=== PATIENT | female | born 1990 | race Caucasian/White ===

== ENCOUNTER 2018-05-07 21:02 | Inpatient (IN) | payer OTHER ==
[2018-05-08] MEDS ORDERED: MINERAL OIL PO PRN (02:35)
[2018-05-08] MEDS ORDERED: PHENERGAN PO PRN (02:35)
[2018-05-08] MEDS ORDERED: ZOFRAN IV PRN (02:35)
[2018-05-08] MEDS ORDERED: BRETHINE SUB-Q PRN (02:35)
[2018-05-08] MEDS ORDERED: STADOL IV PRN (02:35)
[2018-05-08] MEDS ORDERED: SUBLIMAZE IV PRN (02:35)
[2018-05-08] MEDS ORDERED: BRETHINE IVP PRN (02:35)
[2018-05-08] MEDS ORDERED: XYLOCAINE 2% INFILTRATI ONE (02:35)
--- NOTE | 2018-05-08 02:42 | History and Physical Report ---
History of Present Illness Date of examination: 05/08/18 Chief complaint: Labor History of present illness: Pt is a 27yo HF EDC 05/09/18; EGA 39 6/7 weeks presents to L&D complaining of RUC's q 3-4 mins. She received care at [facility] since 9 weeks and has a history of previous . She desires another TOLAC. records are available and GBS is Negative. Past History Past Medical History: no pertinent history Past Surgical History: section Family/Genetic History: none Social history: no significant social history, single - Obstetrical History Expected Date of Delivery: 05/09/18 Actual Gestation: 39 Week(s) 6 Day(s) : 4 Medications and Allergies Allergies Allergy/AdvReac Type Severity Reaction Status Date / Time No Known Allergies Allergy Verified 06/25/15 00:35 Home Medications Medication Instructions Recorded Confirmed Last Taken Type No Known Home Medications [No 06/26/15 05/08/18 Unknown History Reported Home Medications] Active Meds: Active Medications Butorphanol Tartrate (Stadol) 2 mg IV Q2H PRN PRN Reason: Pain , Severe (7-10) Ephedrine Sulfate (Ephedrine Sulfate) 10 mg IV Q2M PRN PRN Reason: Hypotension Fentanyl (Sublimaze) 100 mcg IV Q2H PRN PRN Reason: Labor Pain Lactated Ringer's (Lactated Ringers) 1,000 mls @ 125 mls/hr IV DIRECT KISHA Oxytocin/Sodium Chloride (Pitocin/Ns 20 Unit/1000ml Drip) 20 units in 1,000 mls @ 125 mls/hr IV DIRECT KISHA Oxytocin/Sodium Chloride (Pitocin/Ns 30 Unit/500ml) 30 units in 500 mls @ 1 mls /hr IV TITR KISHA; Protocol Lidocaine (Xylocaine 2%) 20 ml INFILTRATI ONCE ONE Stop: 05/08/18 02:36 Mineral Oil (Mineral Oil) 30 ml PO QHS PRN PRN Reason: Constipation Ondansetron HCl (Zofran) 4 mg IV Q8H PRN PRN Reason: Nausea And Vomiting Review of Systems All systems: negative - Vital Signs Vital signs: Vital Signs Pulse BP 91 H 117/73 05/07/18 22:10 05/07/18 22:10 Temp Pulse Resp BP Pulse Ox 91 H 117/73 05/07/18 22:10 05/07/18 22:10 - Physical Exam Breasts: Positive: deferred Cardiovascular: Regular rate Lungs: Positive: Clear to auscultation Abdomen: Positive: normal appearance Genitourinary (Female): Positive: normal external genitalia Vagina: Positive: normal moisture Uterus: Positive: enlarged Extremities: Positive: normal - Obstetrical FHR: category 1 Uterine Contraction Monitor Mode: External Cervical Dilatation: 4.5 (per nurse) Cervical Effacement Percentage: 70 (per nurse) station: -3 Uterine Contraction Pattern: Regular Uterine Tone Measurement Phase: Contraction Uterine Contraction Intensity: Moderate Results Result Diagrams: 05/08/18 03:19 All other labs normal. Assessment and Plan - Patient Problems (1) 39 weeks gestation of Onset Date: 05/08/18 Current Visit: Yes Status: Acute Plan to address problem: A: IUP @ 39 6/7 weeks Previous P: Admit to L&D for expectant vaginal delivery
[2018-05-08] MEDS ORDERED: PITOCin/NS 30 UNIT/500ML 30 UNITS/500 ML BAG IV SCH ×2 (03:00)
[2018-05-08] MEDS ORDERED: PITOCin/NS 20 UNIT/1000ML DRIP 20 UNITS/1,000 ML BAG IV SCH (03:00)
[2018-05-08 03:44] LABS: Hematocrit 37.3 % (30.3-42.9); Mean Corpuscular HGB Conc 35 % (30-34); Mean Corpuscular Hemoglobin 32 pg (28-32); Mean Corpuscular Volume 92 fl (79-97); Platelet Count 198 K/mm3 (140-440); Red Blood Count 4.05 M/mm3 (3.65-5.03); Red Cell Distribution Width 13.4 % (13.2-15.2)
[2018-05-08] MEDS: LACTATED RINGERS 1,000 ML IV SCH ×3 (03:53→08:49)
[2018-05-08] MEDS ORDERED: NARCAN 2 MG/2 ML IV PRN (05:04)
[2018-05-08] MEDS ORDERED: fentaNYL-BUPIV 2 MCG/ML-0.125% 200 MCG/100 ML BAG EPIDURAL SCH (06:00)
--- NOTE | 2018-05-08 08:36 | Event Note ---
Date: 05/08/18 O: VE C/C/0, Unable to move baby with a trial push, epidural turned off, contractions every 2-3 min, CAT I tracing A: Active labor, P; Expect
--- NOTE | 2018-05-08 09:53 | Event Note ---
27yo 39+weeks, previous undergoing TOLAC. Cervix is complete, +2. Pitocin = 4 started overnight. [id number] [place] ctx Q1min Plan: Will start pushing now. Plan vaginal delivery.
[2018-05-08] MEDS ORDERED: TUCKS PAD TP PRN (10:36)
[2018-05-08] MEDS ORDERED: LANSINOH TP PRN (10:36)
[2018-05-08] MEDS ORDERED: MILK OF MAGNESIA PO PRN (10:36)
[2018-05-08] MEDS ORDERED: TYLENOL PO PRN (10:36)
[2018-05-08] MEDS ORDERED: PHENERGAN PR PRN (10:36)
[2018-05-08] MEDS ORDERED: DULCOLAX PR PRN (10:36)
[2018-05-08] MEDS ORDERED: BENADRYL PO PRN (10:36)
--- NOTE | 2018-05-08 10:36 | Procedure Note ---
OB Delivery Note - Vaginal Delivery presentation: vertex Delivery position: OA Intrapartum events: meconium Delivery induction: none Delivery augmentation: pitocin Delivery monitor: external FHT Route of delivery: Delivery placenta: spontaneous Episiotomy: none Delivery laceration: none Anesthesia: epidural Delivery comments: Term male delivered over intact perineum. Bulb suctioned and placed on maternal abdomen. Infant noted to be vigorous. Delivery at 1016. Placenta delivery 1021. Pitocin administered post-placenta delivery. Uterus noted to be firm and below umbilicus. Fundal massage noted no further uterine bleeding. EBL 150ml. - Infant A at 1 minute: 8 at 5 minutes: 9 Gender: Male (Weight 7lb 14oz)
[2018-05-08] MEDS ORDERED: SODIUM CHLORIDE FLUSH SYRINGE 10 ML IV NR (11:00)
[2018-05-08] MEDS ORDERED: MOTRIN PO ONE (12:06)
[2018-05-08] MEDS: NORCO 5/325 PO PRN ×2 (16:30→23:55)
[2018-05-08] MEDS: MOTRIN PO SCH (20:10)
[2018-05-08 22:44] LABS: Hematocrit 29.8 % (30.3-42.9); Hemoglobin 10.2 gm/dl (10.1-14.3)
[2018-05-09] MEDS: MOTRIN PO SCH ×3 (05:55→23:00)
[2018-05-09] MEDS ORDERED: BOOSTRIX IM ONE (06:00)
--- NOTE | 2018-05-09 14:47 | Progress Note ---
Assessment and Plan day 1 S/P . Anemia. P: Supplement with iron. Anticipate discharge tomorrow. Subjective - Subjective Date of service: 05/09/18 Principal diagnosis: day 1 Interval history: day 1 S/P . Patient is doing well. Patient is voiding without difficulty. She is tolerating a regular diet without nausea or vomiting. She is ambulating well. Patient denies headache, chest pain, cough, abdominal pain, heavy bleeding, or leg pain. Patient is . Patient reports: appetite normal, voiding normally, pain well controlled, flatus , ambulating normally : doing well Objective - Vital Signs Latest vital signs: Vital Signs Temp Pulse Resp BP BP Pulse Ox 05/09/18 09:54 97.9 F 84 16 97/52 05/09/18 00:25 98.6 F 87 18 102/76 98 05/08/18 17:30 98.6 F 85 20 103/62 97 Intake and Output 05/08/18 05/09/18 05/09/18 23:59 07:59 15:59 Intake Total 360 240 Balance 360 240 Intake: Oral 360 240 Other: Total, Intake Amount 240 240 # Voids Void 1 1 - Exam Cardiovascular: Present: Regular rate, Normal S1, Normal S2 Lungs: Present: Clear to auscultation Abdomen: Present: normal appearance, soft. Absent: distention, tenderness, rigidity Uterus: Present: normal, firm, fundal height below umbilicus. Absent: bogginess , tenderness Extremities: Present: normal. Absent: tenderness, edema - Labs Labs: Abnormal lab results 05/08/18 Range/Units 22:25 Hct 29.8 L D (30.3-42.9) %
[2018-05-09] MEDS ORDERED: FEOSOL PO SCH (15:00)
[2018-05-09] MEDS: NORCO 5/325 PO PRN (15:21)
[2018-05-10] MEDS: NORCO 5/325 PO PRN (04:55)
[2018-05-10] MEDS: MOTRIN PO SCH (05:46)
[2018-05-10 08:59] VITALS: BP 87/55
--- NOTE | 2018-05-10 10:23 | Progress Note ---
Assessment and Plan A: day 2. Anemia. P: Discharge patient home today. Discussed with patient discharge instructions and warning signs in detail. Advised pt. to avoid intercourse, avoid lifting and heavy housework, and avoid driving. The following Rx were called to [facility] pharmacy on [address]: Motrin 800 mg, #30, 1 po every 8 hours prn pain, 0 RF; Ferrous Sulfate 325 mg, #60, 1 po BID, 1 RF. Advised pt. to continue taking her vitamins. Advised pt. to follow up in office in 6 weeks. Pt. voiced understanding of all instructions. Subjective - Subjective Date of service: 05/10/18 Principal diagnosis: day 2 S/P vaginal delivery Interval history: day 1 S/P vaginal delivery. Patient is doing well. Patient desires discharge today. Patient reports a small amount of lochia. She is . She is ambulating well, voiding without difficulty, and tolerating a regular diet. Patient denies headache, cough, chest pain, shortness of breath, leg pain, abdominal pain, heavy bleeding, nausea or vomiting, or symptoms of depression. Patient is undecided regarding control. Patient reports: appetite normal, voiding normally, pain well controlled, flatus , ambulating normally : doing well Objective - Vital Signs Latest vital signs: Vital Signs Temp Pulse Resp BP BP Pulse Ox 05/10/18 08:18 97.8 F 81 18 87/55 05/10/18 06:46 18 05/10/18 05:55 18 05/10/18 05:46 18 05/10/18 04:55 18 05/10/18 01:50 98.4 F 89 18 107/59 96 05/09/18 23:00 18 05/09/18 16:45 98.7 F 20 05/09/18 15:32 100/54 05/09/18 13:30 98.6 F 78 18 102/60 Intake and Output 05/09/18 05/10/18 05/10/18 23:59 07:59 15:59 Intake Total 240 360 240 Balance 240 360 240 Intake: Oral 240 240 Intake, Free Water 240 120 Other: Total, Intake Amount 240 240 # Voids Void 1 1 1 - Exam Cardiovascular: Present: Regular rate, Normal S1, Normal S2 Lungs: Present: Clear to auscultation Abdomen: Present: normal appearance, soft. Absent: distention, tenderness, guarding, rigidity Uterus: Present: normal, firm, fundal height below umbilicus. Absent: bogginess , tenderness Extremities: Present: normal. Absent: tenderness, edema
--- NOTE | 2018-05-10 10:27 | Discharge Summary ---
Providers - Providers Date of Admission: 05/08/18 02:52 Date of discharge: 05/10/18 Attending physician: MIRIAM MCNAMARA MD Primary care physician: MIRIAM MCNAMARA MD Hospitalization Reason for admission: active labor Delivery: Episiotomy: none Laceration: other Other procedures: none complications: none Discharge diagnosis: IUP at term delivered, baby: male Pertinent studies: Labs Hospital course: Normal hospital course. Condition at discharge: Good Disposition: DC-01 TO HOME OR SELFCARE - Discharge Diagnoses (1) Term delivered Status: Acute Plan - Provider Discharge Summary Activity: routine, no sex for 6 weeks, no heavy lifting 4 weeks, no strenuous exercise Diet: routine Instructions: routine Additional instructions: Continue vitamin once per day and iron supplement twice per day. Call your doctor immediately for: * Fever > 100.5 * Heavy vaginal bleeding ( >1 pad per hour) * Severe persistent headache * Shortness of breath * Reddened, hot, painful area to leg or breast - Follow up plan Follow up: MIRIAM MCNAMARA MD [Primary Care Provider] - 6 Weeks Forms: [facility] Discharge Summary
== END 2018-05-10 11:30 | disposition home or self-care (01) | DRG 776 ==
LOC: TRG 21:02 → LD 05-08 02:52 → OB 05-08 12:29
PROVIDERS: ADMIT Obstetrics & Gynecology; ATTEND Obstetrics & Gynecology
DX: O90.81 Anemia of the puerperium (principal); D64.9 Anemia, unspecified
CPT/HCPCS: 36415; 85014; 85018; 85027; 86592; 86850; 86900; 86901; 90471; 90715; J0595; J2405; J2590; J7120

== ENCOUNTER 2021-03-13 01:39 | Inpatient (IN) | payer MEDICAID, OTHER ==
[2021-03-13] MEDS ORDERED: TERBUTALINE 1 MG/1 ML INJ SUB-Q PRN (02:16)
[2021-03-13] MEDS ORDERED: LIDOCAINE (2%) 20 MG/1 ML VIAL 20 ML MDV INFILTRATI ONE (02:16)
[2021-03-13] MEDS ORDERED: miSOPROStol 200 MCG TAB PR PRN (02:16)
[2021-03-13] MEDS ORDERED: ePHEDrine SULFATE 50 MG/1 ML INJ IV PRN ×2 (02:16→03:48)
[2021-03-13] MEDS ORDERED: fentaNYL 100 MCG/2 ML INJ IV PRN (02:16)
[2021-03-13] MEDS ORDERED: METHYLERGONOVINE MALEATE 0.2 MG/ML VIAL IM PRN (02:16)
[2021-03-13] MEDS ORDERED: ONDANSETRON 4 MG/2 ML INJ IV PRN ×3 (02:16→17:00)
[2021-03-13] MEDS ORDERED: NALOXONE 0.4 MG/1 ML INJ IV PRN (02:16)
[2021-03-13] MEDS ORDERED: CARBOPROST TROMETHAMINE 250 MCG/1 ML INJ IM PRN (02:16)
[2021-03-13] MEDS ORDERED: OXYTOCIN 10 UNIT/1 ML INJ IM PRN (02:16)
[2021-03-13] MEDS ORDERED: LOPERAMIDE 2 MG CAP PO PRN (02:16)
[2021-03-13] MEDS ORDERED: BUTORPHANOL 2 MG/1 ML INJ IV PRN (02:16)
[2021-03-13] MEDS ORDERED: MINERAL OIL 30 ML ORAL LIQD PO PRN (02:16)
[2021-03-13] MEDS ORDERED: OXYTOCIN DRIP 30 UNITS/500 ML BAG IV SCH ×2 (03:00→09:00)
[2021-03-13] MEDS: LACTATED RINGERS 1,000 ML IV SCH ×2 (03:17→10:16)
[2021-03-13 03:19] LABS: Hematocrit 35.3 % (30.3-42.9); Hemoglobin 12.1 gm/dl (10.1-14.3); Mean Corpuscular HGB Conc 34 % (30-34); Mean Corpuscular Volume 88 fl (79-97); Platelet Count 247 K/mm3 (140-440); Red Blood Count 4.03 M/mm3 (3.65-5.03); Red Cell Distribution Width 14.8 % (13.2-15.2)
--- NOTE | 2021-03-13 03:23 | History and Physical Report ---
History of Present Illness Date of examination: 03/13/21 Date of admission: 03/13/21 02:16 Chief complaint: contractions History of present illness: 30yo at 41.1 weeks, TOLAC 4cm/70/-3, previous c/sectionx1 with two successful deliveries PNC at [facility], records in chart Past History Past Surgical History: no surgical history Family/Genetic History: none - Obstetrical History Expected Date of Delivery: 03/12/21 Actual Gestation: 40 Week(s) 1 Day(s) : 6 Medications and Allergies Allergies Allergy/AdvReac Type Severity Reaction Status Date / Time No Known Allergies Allergy Verified 06/25/15 00:35 Home Medications Medication Instructions Recorded Confirmed Last Taken Type No Known Home Medications [No 06/26/15 05/08/18 Unknown History Reported Home Medications] Active Meds: Active Medications Butorphanol Tartrate (Butorphanol 2 Mg/1 Ml Inj) 2 mg IV Q2H PRN PRN Reason: Pain , Severe (7-10) Carboprost Tromethamine (Carboprost Tromethamine 250 Mcg/1 Ml Inj) 250 mcg IM ONCE PRN PRN Reason: Uterine Bleeding Ephedrine Sulfate (Ephedrine Sulfate 50 Mg/1 Ml Inj) 10 mg IV Q2M PRN PRN Reason: Hypotension Fentanyl (Fentanyl 100 Mcg/2 Ml Inj) 100 mcg IV Q2H PRN PRN Reason: Pain,Severe (7-10) LABOR PAIN Lactated Ringer's (Lactated Ringers) 1,000 mls @ 125 mls/hr IV DIRECT KISHA Last Admin: 03/13/21 03:17 Dose: 125 mls/hr Documented by: Oxytocin/Sodium Chloride (Pitocin/Ns 30 Unit/500ml) 30 units in 500 mls @ 40 mls/hr IV TITR KISHA; Protocol Loperamide HCl (Loperamide 2 Mg Cap) 2 mg PO ONCE PRN PRN Reason: give with Hemabate Methylergonovine Maleate (Methylergonovine Maleate 0.2 Mg/Ml Vial) 0.2 mg IM ONCE PRN PRN Reason: Uterine Bleeding Mineral Oil (Mineral Oil 30 Ml Oral Liqd) 30 ml PO QHS PRN PRN Reason: Constipation Misoprostol (Misoprostol 200 Mcg Tab) 800 mcg [place] ONCE PRN PRN Reason: Uterine Bleeding Naloxone HCl (Naloxone 0.4 Mg/1 Ml Inj) 0.1 mg IV Q2MIN PRN PRN Reason: Res Rate </= 8 or 02 SAT < 92% Ondansetron HCl (Ondansetron 4 Mg/2 Ml Inj) 4 mg IV Q8H PRN PRN Reason: Nausea And Vomiting Oxytocin (Oxytocin 10 Unit/1 Ml Inj) 10 unit IM ONCE PRN PRN Reason: Uterine Bleeding Terbutaline Sulfate (Terbutaline 1 Mg/1 Ml Inj) 0.25 mg SUB-Q ONCE PRN PRN Reason: Hyperstimulation/Hypertonicity Review of Systems All systems: negative (contractions) - Vital Signs Vital signs: Vital Signs Temp Resp 98.1 F 18 03/13/21 01:46 03/13/21 01:46 Temp Pulse Resp BP Pulse Ox 98.1 F 103 H 18 98 03/13/21 01:46 03/13/21 03:09 03/13/21 01:46 03/13/21 03:09 - Physical Exam Breasts: Positive: deferred Cardiovascular: Regular rate Lungs: Positive: Clear to auscultation Abdomen: Positive: normal appearance, soft, normal bowel sounds Genitourinary (Female): Positive: normal external genitalia, normal perenium Vagina: Positive: normal moisture Anus/Rectum: Positive: normal perianal skin Extremities: Positive: normal Deep Tendon Reflex Grade: Normal +2 - Obstetrical FHR: category 1 Uterine Contraction Monitor Mode: External Cervical Dilatation: 4 Cervical Effacement Percentage: 70 station: -3 Uterine Contraction Frequency (min): 4 Uterine Contraction Pattern: Regular Uterine Contraction Intensity: Moderate Results Result Diagrams: 03/13/21 02:54 All other labs normal. Assessment and Plan TOLAC plan: admission epidural informed TOLAC consent GBS prophylaxis prn CFM Maternal/ well-being reassuring Torri Gonzalez MD
[2021-03-13] MEDS ORDERED: diphenhydrAMINE 50 MG/ML VIAL IV PRN (03:48)
[2021-03-13] MEDS ORDERED: NALOXONE 2 MG/2 ML INJ IV PRN (03:48)
[2021-03-13] MEDS ORDERED: NalbUPHINE 10 MG/1 ML INJ IV PRN (03:48)
[2021-03-13] MEDS ORDERED: LACTATED RINGERS 250 ML IV SOLN IV ONE (03:48)
[2021-03-13] MEDS ORDERED: fentaNYL-BUPIV 2 MCG/ML-0.125% 200 MCG/100 ML BAG EPIDURAL SCH (04:00)
--- NOTE | 2021-03-13 04:24 | Anesthesia Consultation ---
Anesthesia Consult and Med Hx Date of service: 03/13/21 - Airway Anesthetic Teeth Evaluation: Good ROM Head & Neck: Adequate Mental/Hyoid Distance: Adequate Mallampati Class: Class II Intubation Access Assessment: Probably Good - Pulmonary Exam CTA: Yes - Cardiac Exam Cardiac Exam: RRR - Pre-Operative Health Status ASA Pre-Surgery Classification: ASA2 Proposed Anesthetic Plan: Epidural - Pulmonary Hx Smoking: No Hx Asthma: No COPD: No Hx Pneumonia: No Hx Sleep Apnea: No - Cardiovascular System Hx Hypertension: No Hx Coronary Artery Disease: No Hx Heart Attack/AMI: No Hx Angina: No - Central Nervous System Hx Seizures: No Hx Back Pain: Yes Hx Psychiatric Problems: No - Gastrointestinal Hx Gastroesophageal Reflux Disease: No - Endocrine Hx Renal Disease: No Hx End Stage Renal Disease: No Hx Liver Disease: No Hx Insulin Dependent Diabetes: No Hx Non-Insulin Dependent Diabetes: No Hx Hypothyroidism: No Hx Hyperthyroidism: No - Hematic Hx Anemia: No Hx Sickle Cell Disease: No - Other Systems Hx Alcohol Use: No
--- NOTE | 2021-03-13 04:25 | Progress Note ---
Labor Epidural - Labor Epidural Start Time: 04:07 Stop Time: 04:21 Performed by:: SILVIA EDMOND Procedure: Patient is requesting epidural for labor and pain. H&P, labs were reviewed. Patient IDed, H&P reviewed, all questions and concerns were answered, and consent was signed. Timeout was performed at bedside. Patient in sitting position. Sterile prep and drape was performed. 3ml of 1% lidocaine skin wheal at L[3]- L [4]. 18-gauge [employer] epidural needle was advanced to loss of resistance with air technique 5cm. Negative CSF negative blood. Epidural catheter advanced to [10] centimeters. [negative] Aspiration [negative] test dose. Sterile dressing applied. Patient tolerated procedure.
[2021-03-13] MEDS ORDERED: BUPIVACAINE/PF (0.25%) 2.5 MG/ML 10 ML VIAL INFILTRATI ONE (12:21)
--- NOTE | 2021-03-13 12:45 | Event Note ---
Date: 03/13/21 Notified by nurse that pt's HR was 130s with a temp of 99.6. FHt was CAT I. Nurse was advised to give pt a 500cc fluid bolus and get an EKG. Dr Tristan was consulted.
--- NOTE | 2021-03-13 12:56 | Progress Note ---
Assessment and Plan A: IUP@ 40.2 wks Previous c/s with X2 Mec Maternal tach P: Continue monitoring with Pitocin AROM (light mec) Notify NICU IFM/IUPC placed EKG- maternal tach otherwise wnl Anticipate Dr Tristan was consulted Subjective - Subjective Date of service: 03/13/21 Principal diagnosis: iup @ 40.2 wks Patient reports: loss of fluid, movement normal, contractions Objective - Vital Signs Vital Signs: Vital Signs - 12hr 03/13/21 03/13/21 03/13/21 01:46 02:27 02:32 Temperature 98.1 F Pulse Rate 108 H 112 H Respiratory 18 Rate Blood Pressure O2 Sat by Pulse 97 98 Oximetry 03/13/21 03/13/21 03/13/21 02:54 02:59 03:04 Temperature Pulse Rate 100 H 104 H 107 H Respiratory Rate Blood Pressure O2 Sat by Pulse 98 98 97 Oximetry 03/13/21 03/13/21 03/13/21 03:09 03:41 03:50 Temperature Pulse Rate 103 H 112 H 114 H Respiratory Rate Blood Pressure O2 Sat by Pulse 98 96 99 Oximetry 03/13/21 03/13/21 03/13/21 03:55 04:00 04:05 Temperature Pulse Rate 116 H 106 H 116 H Respiratory Rate Blood Pressure O2 Sat by Pulse 98 99 99 Oximetry 03/13/21 03/13/21 03/13/21 04:10 04:15 04:20 Temperature Pulse Rate 119 H 109 H 111 H Respiratory Rate Blood Pressure O2 Sat by Pulse 99 98 97 Oximetry 03/13/21 03/13/21 03/13/21 04:23 04:25 04:27 Temperature Pulse Rate 114 H 113 H 109 H Respiratory Rate Blood Pressure 126/80 114/70 108/65 O2 Sat by Pulse Oximetry 03/13/21 03/13/21 03/13/21 04:29 04:31 04:34 Temperature Pulse Rate 95 H 90 104 H Respiratory Rate Blood Pressure 109/64 100/57 O2 Sat by Pulse 91 100 Oximetry 03/13/21 03/13/21 03/13/21 04:37 04:39 04:40 Temperature Pulse Rate 96 H 90 99 H Respiratory Rate Blood Pressure 105/57 95/53 O2 Sat by Pulse 100 Oximetry 03/13/21 03/13/21 03/13/21 04:43 04:44 04:46 Temperature Pulse Rate 106 H 85 101 H Respiratory Rate Blood Pressure 118/63 130/69 O2 Sat by Pulse 98 Oximetry 03/13/21 03/13/21 03/13/21 04:49 04:54 04:59 Temperature Pulse Rate 96 H 98 H 124 H Respiratory Rate Blood Pressure O2 Sat by Pulse 97 98 99 Oximetry 03/13/21 03/13/21 03/13/21 05:01 05:04 05:09 Temperature Pulse Rate 100 H 127 H 120 H Respiratory Rate Blood Pressure 122/69 O2 Sat by Pulse 98 98 Oximetry 03/13/21 03/13/21 03/13/21 05:14 05:19 05:24 Temperature Pulse Rate 90 102 H 129 H Respiratory Rate Blood Pressure O2 Sat by Pulse 97 97 100 Oximetry 03/13/21 03/13/21 03/13/21 05:29 05:32 05:34 Temperature Pulse Rate 109 H 126 H 110 H Respiratory Rate Blood Pressure 89/50 O2 Sat by Pulse 99 99 Oximetry 03/13/21 03/13/21 03/13/21 05:39 05:44 05:49 Temperature Pulse Rate 109 H 100 H 106 H Respiratory Rate Blood Pressure O2 Sat by Pulse 100 100 100 Oximetry 03/13/21 03/13/21 03/13/21 05:54 05:58 05:59 Temperature Pulse Rate 107 H 131 H 97 H Respiratory Rate Blood Pressure 118/67 O2 Sat by Pulse 100 100 Oximetry 03/13/21 03/13/21 03/13/21 06:03 06:04 06:09 Temperature Pulse Rate 130 H 106 H 125 H Respiratory Rate Blood Pressure 130/76 O2 Sat by Pulse 100 100 Oximetry 03/13/21 03/13/21 03/13/21 06:14 06:19 06:24 Temperature Pulse Rate 102 H 111 H 129 H Respiratory Rate Blood Pressure O2 Sat by Pulse 100 100 100 Oximetry 03/13/21 03/13/21 03/13/21 06:29 06:32 06:34 Temperature Pulse Rate 129 H 129 H 122 H Respiratory Rate Blood Pressure 106/66 O2 Sat by Pulse 100 100 Oximetry 03/13/21 03/13/21 03/13/21 06:39 06:44 06:49 Temperature Pulse Rate 121 H 105 H 118 H Respiratory Rate Blood Pressure O2 Sat by Pulse 100 100 98 Oximetry 03/13/21 03/13/21 03/13/21 06:54 06:55 06:59 Temperature 99.5 F Pulse Rate 110 H 121 H Respiratory Rate Blood Pressure O2 Sat by Pulse 100 98 Oximetry 03/13/21 03/13/21 03/13/21 07:02 07:04 07:09 Temperature Pulse Rate 120 H 117 H 117 H Respiratory Rate Blood Pressure 111/58 O2 Sat by Pulse 99 98 Oximetry 03/13/21 03/13/21 03/13/21 07:14 07:19 07:24 Temperature Pulse Rate 107 H 111 H 120 H Respiratory Rate Blood Pressure O2 Sat by Pulse 98 98 99 Oximetry 03/13/21 03/13/21 03/13/21 07:29 07:32 07:34 Temperature Pulse Rate 117 H 118 H 126 H Respiratory Rate Blood Pressure 105/55 O2 Sat by Pulse 98 97 Oximetry 03/13/21 03/13/21 03/13/21 07:39 07:44 07:49 Temperature Pulse Rate 117 H 129 H 112 H Respiratory Rate Blood Pressure O2 Sat by Pulse 98 99 97 Oximetry 03/13/21 03/13/21 03/13/21 07:54 07:59 08:03 Temperature Pulse Rate 110 H 129 H 123 H Respiratory Rate Blood Pressure 111/66 O2 Sat by Pulse 97 99 Oximetry 03/13/21 03/13/21 03/13/21 08:04 08:09 08:14 Temperature Pulse Rate 130 H 117 H 120 H Respiratory Rate Blood Pressure O2 Sat by Pulse 98 99 99 Oximetry 03/13/21 03/13/21 03/13/21 08:19 08:24 08:29 Temperature Pulse Rate 116 H 129 H 128 H Respiratory Rate Blood Pressure O2 Sat by Pulse 98 99 100 Oximetry 03/13/21 03/13/21 03/13/21 08:32 08:34 08:39 Temperature Pulse Rate 127 H 131 H 119 H Respiratory Rate Blood Pressure 105/63 O2 Sat by Pulse 100 100 Oximetry 03/13/21 03/13/21 03/13/21 08:44 08:49 08:54 Temperature Pulse Rate 113 H 127 H 124 H Respiratory Rate Blood Pressure O2 Sat by Pulse 100 100 100 Oximetry 03/13/21 03/13/21 03/13/21 08:59 09:02 09:04 Temperature Pulse Rate 130 H 126 H 127 H Respiratory Rate Blood Pressure 101/57 O2 Sat by Pulse 100 100 Oximetry 03/13/21 03/13/21 03/13/21 09:09 09:14 09:19 Temperature Pulse Rate 130 H 127 H 133 H Respiratory Rate Blood Pressure O2 Sat by Pulse 100 100 100 Oximetry 03/13/21 03/13/21 03/13/21 09:24 09:29 09:32 Temperature Pulse Rate 125 H 126 H 125 H Respiratory Rate Blood Pressure 98/56 O2 Sat by Pulse 100 100 Oximetry 03/13/21 03/13/21 03/13/21 09:34 09:39 09:44 Temperature Pulse Rate 121 H 129 H 127 H Respiratory Rate Blood Pressure O2 Sat by Pulse 100 99 100 Oximetry 03/13/21 03/13/21 03/13/21 09:49 09:54 09:59 Temperature Pulse Rate 132 H 125 H 126 H Respiratory Rate Blood Pressure O2 Sat by Pulse 100 99 100 Oximetry 03/13/21 03/13/21 03/13/21 10:00 10:04 10:09 Temperature 99.6 F Pulse Rate 117 H 123 H Respiratory Rate Blood Pressure 116/64 O2 Sat by Pulse 98 96 Oximetry 03/13/21 03/13/21 03/13/21 10:14 10:19 10:24 Temperature Pulse Rate 115 H 124 H 108 H Respiratory Rate Blood Pressure O2 Sat by Pulse 98 100 100 Oximetry 03/13/21 03/13/21 03/13/21 10:29 10:32 10:34 Temperature Pulse Rate 108 H 106 H 105 H Respiratory Rate Blood Pressure 109/59 O2 Sat by Pulse 97 98 Oximetry 03/13/21 03/13/21 03/13/21 10:39 10:44 10:49 Temperature Pulse Rate 108 H 107 H 106 H Respiratory Rate Blood Pressure O2 Sat by Pulse 97 97 98 Oximetry 03/13/21 03/13/21 03/13/21 10:54 10:59 11:02 Temperature Pulse Rate 114 H 113 H 113 H Respiratory Rate Blood Pressure 106/57 O2 Sat by Pulse 97 95 Oximetry 03/13/21 03/13/21 03/13/21 11:04 11:09 11:14 Temperature Pulse Rate 111 H 115 H 129 H Respiratory Rate Blood Pressure O2 Sat by Pulse 99 98 100 Oximetry 03/13/21 03/13/21 03/13/21 11:19 11:24 11:29 Temperature Pulse Rate 120 H 122 H 120 H Respiratory Rate Blood Pressure O2 Sat by Pulse 100 100 100 Oximetry 03/13/21 03/13/21 03/13/21 11:33 11:34 11:39 Temperature Pulse Rate 115 H 120 H 120 H Respiratory Rate Blood Pressure 106/61 O2 Sat by Pulse 100 100 Oximetry 03/13/21 03/13/21 03/13/21 11:44 11:49 11:54 Temperature Pulse Rate 116 H 120 H 127 H Respiratory Rate Blood Pressure O2 Sat by Pulse 99 100 100 Oximetry 03/13/21 03/13/21 03/13/21 11:59 12:04 12:10 Temperature Pulse Rate 120 H 127 H 121 H Respiratory Rate Blood Pressure O2 Sat by Pulse 99 96 96 Oximetry 03/13/21 03/13/21 03/13/21 12:15 12:20 12:25 Temperature Pulse Rate 118 H 121 H 120 H Respiratory Rate Blood Pressure O2 Sat by Pulse 97 97 96 Oximetry 03/13/21 03/13/21 03/13/21 12:30 12:35 12:40 Temperature Pulse Rate 104 H 99 H 103 H Respiratory Rate Blood Pressure O2 Sat by Pulse 97 96 97 Oximetry 03/13/21 12:45 Temperature Pulse Rate 104 H Respiratory Rate Blood Pressure O2 Sat by Pulse 97 Oximetry - Exam Breasts: deferred Abdomen: Present: normal appearance, soft, normal bowel sounds Vulva: both: normal FHR: auscultation normal, category 1 Uterine Contraction Monitor Mode: Internal Cervical Dilatation: 7 Cervical Effacement Percentage: 100 station: -1 Uterine Contraction Pattern: Regular Uterine Tone Measurement Phase: Resting Uterine Contraction Intensity: Strong/Firm Extremities: normal - Labs Labs: Laboratory Results - last 24 hr 03/13/21 03/13/21 03/13/21 02:54 02:54 06:20 WBC 11.0 RBC 4.03 Hgb 12.1 Hct 35.3 MCV 88 MCH 30 MCHC 34 RDW 14.8 Plt Count 247 Syphilis IgG Antibody Nonreactive Blood Type A POSITIVE Antibody Screen Negative
[2021-03-13] MEDS ORDERED: AMPICILLIN/NS 2 GM/100 ML 2 GM/100 ML BAG IV ONE (15:54)
[2021-03-13] MEDS ORDERED: WITCH HAZEL/ GLYCERIN PAD TP PRN (16:19)
--- NOTE | 2021-03-13 16:44 | Procedure Note ---
OB Delivery Note - Delivery Date of Delivery: 03/13/21 Surgeon: MARILYN HARDIN Estimated blood loss: <100cc - Vaginal Delivery presentation: vertex Delivery position: OA Intrapartum events: other(please specify) (, temp 100.1, maternal tach) Delivery induction: oxytocin Delivery augmentation: rupture of membranes Delivery monitor: external FHT, external uterine, internal uterine Route of delivery: Delivery placenta: spontaneous Delivery cord: 3 umbilical vessels Episiotomy: none Delivery laceration: none Anesthesia: epidural Delivery comments: Called to delivery SVE 10/100%/0 and pt was pushing. of a live viable female infant in OA position. Spontaneous delivery of head and shoulders. Baby to mom's abd/chest for skin to skin bonding. Delayed cord clamping while NICU nurse dried and stimulated baby. Cord was clamped x 2 and FOB was guided in cutting the cord. Afterwards, was taken by NICU nurse for an asses 9/9. Spontaneous delivery of an intact placenta with 3CV. FF@ 2U with fundal massage and IV Pitocin. An exploration of tears revealed none. FW 3300 Gms. EBL <100cc. Mom and baby was left in stable cond with nurses. - A at 1 minute: 9 at 5 minutes: 9 Infant Gender: Female
[2021-03-13] MEDS ORDERED: ACETAMINOPHEN 325 MG TAB PO PRN (17:00)
[2021-03-13] MEDS ORDERED: PROMETHAZINE 25 MG TAB PO PRN (17:00)
[2021-03-13] MEDS ORDERED: MAGNESIUM HYDROXIDE (MOM) ORAL LIQD UDC PO PRN (17:00)
[2021-03-13] MEDS ORDERED: LANOLIN/ZINC/DIMETHICONE (LANSINOH) 7 GM TP PRN (17:00)
[2021-03-13] MEDS ORDERED: diphenhydrAMINE 25 MG CAP PO PRN (17:00)
[2021-03-13] MEDS ORDERED: PROMETHAZINE 25 MG RECT SUPP PR PRN (17:00)
--- NOTE | 2021-03-13 19:52 | Cat Scan Report ---
CTA CHEST WITH CONTRAST INDICATION / CLINICAL INFORMATION: tachycardia. TECHNIQUE: Axial CT images were obtained through the chest after injection of IV contrast. 3 plane SC P and/or 3D reconstructions were produced. All CT scans at this location are performed using CT dose reduction for ALARA by means of automated exposure control. COMPARISON: None available. FINDINGS: The pulmonary arteries are patent without filling defect or evidence for PTE. No focal consolidation, pleural effusion or pneumothorax. No well-defined nodular mass is seen. Heart and aorta appear gely l. Visualized portions of the upper abdomen appear normal. IMPRESSION: 1. No CT evidence for pulmonary embolism. 2. No acute findings. Signer Name: Alton Youngblood MD Signed: 03/13/2021 7:48 PM Workstation Name: [id number]
--- NOTE | 2021-03-13 20:26 | Consultation ---
History of Present Illness - Reason for Consult Consult date: 03/13/21 tachycardia Requesting physician: PURNIMA REYES - History of Present Illness 30 YO Female with Obesity. Consult placed for tachycardia. Patient seen and evaluated in her room. Patient without fever, chills, chest pain, palpitation, productive cough, skin rash, recent ill contact, or known exposure to COVID-19. No reported nursing events. Past History Past Medical History: other (see HPI) Past Surgical History: No surgical history, Other (reviewed) Social history: . denies: smoking, alcohol abuse, prescription drug abuse Family history: no significant family history, other (reviewed) Medications and Allergies Allergies Allergy/AdvReac Type Severity Reaction Status Date / Time No Known Allergies Allergy Verified 06/25/15 00:35 Home Medications Medication Instructions Recorded Confirmed Last Taken Type Ibuprofen [Motrin 600 MG tab] 600 mg PO Q6H #30 tablet 03/15/21 Unknown Rx Vit-Fe Fumar-FA [ 1 each PO QDAY tablet 03/15/21 Unknown Rx Vitamin] Active Meds: Active Medications Acetaminophen (Acetaminophen 325 Mg Tab) 650 mg PO Q4H PRN PRN Reason: Pain MILD(1-3)/Fever >100.5/CROW Bisacodyl (Bisacodyl 10 Mg Rect Supp) 10 mg VT BID PRN PRN Reason: Constipation Butorphanol Tartrate (Butorphanol 2 Mg/1 Ml Inj) 2 mg IV Q2H PRN PRN Reason: Pain , Severe (7-10) Carboprost Tromethamine (Carboprost Tromethamine 250 Mcg/1 Ml Inj) 250 mcg IM ONCE PRN PRN Reason: Uterine Bleeding Diphenhydramine HCl (Diphenhydramine 50 Mg/Ml Vial) 12.5 mg IV Q2H PRN PRN Reason: Itching Diphenhydramine HCl (Diphenhydramine 25 Mg Cap) 25 mg PO Q6H PRN PRN Reason: Itching Ephedrine Sulfate (Ephedrine Sulfate 50 Mg/1 Ml Inj) 10 mg IV Q2M PRN PRN Reason: Hypotension Last Admin: 03/13/21 04:42 Dose: 10 mg Documented by: Fentanyl (Fentanyl 100 Mcg/2 Ml Inj) 100 mcg IV Q2H PRN PRN Reason: Pain,Severe (7-10) LABOR PAIN Lactated Ringer's (Lactated Ringers) 1,000 mls @ 125 mls/hr IV DIRECT KISHA Last Admin: 03/13/21 10:16 Dose: 125 mls/hr Documented by: Oxytocin/Sodium Chloride (Pitocin/Ns 30 Unit/500ml) 30 units in 500 mls @ 40 mls/hr IV TITR KISHA; Protocol Fentanyl/Bupivacaine/Sodium Chlor (Fentanyl-Bupiv 2 Mcg/Ml-0.125%) 200 mcg in 100 mls @ 12 mls/hr EPIDURAL TITR KISHA; Protocol Last Admin: 03/13/21 04:33 Dose: 12 mls/hr Documented by: Oxytocin/Sodium Chloride (Pitocin/Ns 30 Unit/500ml) 30 units in 500 mls @ 1 mls/hr IV TITR KISHA; Protocol Ibuprofen (Ibuprofen 600 Mg Tab) 600 mg PO Q6H KISHA Loperamide HCl (Loperamide 2 Mg Cap) 2 mg PO ONCE PRN PRN Reason: give with Hemabate Magnesium Hydroxide (Magnesium Hydroxide (Mom) Oral Liqd Udc) 30 ml PO HS PRN PRN Reason: Constipation Methylergonovine Maleate (Methylergonovine Maleate 0.2 Mg/Ml Vial) 0.2 mg IM ONCE PRN PRN Reason: Uterine Bleeding Mineral Oil (Mineral Oil 30 Ml Oral Liqd) 30 ml PO QHS PRN PRN Reason: Constipation Misoprostol (Misoprostol 200 Mcg Tab) 800 mcg VT ONCE PRN PRN Reason: Uterine Bleeding Multi-Ingredient Ointment (Lanolin/Zinc/Dimethicone (Lansinoh) 7 Gm) 1 applic TP PRN PRN PRN Reason: Sore Nipples Multivitamins/Iron/Calcium ( [id number]-[id number] Fumarate-Folic Acid Vit Tab) 1 each PO QDAY KISHA Nalbuphine HCl (Nalbuphine 10 Mg/1 Ml Inj) 2.5 mg IV Q2H PRN PRN Reason: Itching Naloxone HCl (Naloxone 0.4 Mg/1 Ml Inj) 0.1 mg IV Q2MIN PRN PRN Reason: Res Rate </= 8 or 02 SAT < 92% Naloxone HCl (Naloxone 2 Mg/2 Ml Inj) 0.2 mg IV Q5M PRN PRN Reason: Respiratory sedation Ondansetron HCl (Ondansetron 4 Mg/2 Ml Inj) 4 mg IV Q8H PRN PRN Reason: Nausea And Vomiting Last Admin: 03/13/21 06:44 Dose: 4 mg Documented by: Ondansetron HCl (Ondansetron 4 Mg/2 Ml Inj) 4 mg IV Q8H PRN PRN Reason: Nausea And Vomiting Oxycodone/Acetaminophen (Oxycodone /Acetaminophen 5-325mg Tab) 1 tab PO Q6H PRN PRN Reason: Pain, Moderate (4-6) Oxytocin (Oxytocin 10 Unit/1 Ml Inj) 10 unit IM ONCE PRN PRN Reason: Uterine Bleeding Promethazine HCl (Promethazine 25 Mg Rect Supp) 25 mg VT Q6H PRN PRN Reason: Nausea And Vomiting Promethazine HCl (Promethazine 25 Mg Tab) 25 mg PO Q6H PRN PRN Reason: Nausea And Vomiting Sodium Chloride (Sodium Chloride 0.9% 10 Ml Flush Syringe) 10 ml IV PRN NR Stop: 03/14/21 23:59 Terbutaline Sulfate (Terbutaline 1 Mg/1 Ml Inj) 0.25 mg SUB-Q ONCE PRN PRN Reason: Hyperstimulation/Hypertonicity Witch Galina/Glycerin (Witch Galina/ Glycerin Pad) 1 each TP PRN PRN PRN Reason: Hemorrhoid/cleansing/soothing Review of Systems Constitutional: no weight loss, no weight gain, no fever, no chills Ears, nose, mouth and throat: no ear pain, no ear discharge, no decreased hearing, no nose pain, no nasal congestion Cardiovascular: no chest pain, no orthopnea, no palpitations, no rapid/irregular heart beat Respiratory: no cough, no cough with sputum, no hemoptysis, no shortness of breath Gastrointestinal: no abdominal pain, no nausea, no vomiting, no diarrhea Genitourinary Female: no pelvic pain, no flank pain, no dysuria, no urinary frequency, no urgency Rectal: no pain, no incontinence, no bleeding Musculoskeletal: no neck stiffness, no neck pain, no arm numbness/tingling, no low back pain, no leg numbness/tingling Integumentary: no rash, no pruritis, no redness, no sores, no wounds, no jaundice Neurological: no transient paralysis, no paralysis, no weakness, no tingling, no syncope, no tremors Psychiatric: no anxiety, no memory loss, no change in sleep habits, no insomnia, no hypersomnia, no change in libido Endocrine: no heat intolerance, no excessive thirst, no nocturia, no excessive sweating, no flushing Hematologic/Lymphatic: no easy bruising, no easy bleeding, no lymphedema Allergic/Immunologic: no allergic rhinitis, no wheezing, no persistent infections, no angioedema Exam - Constitutional Vitals: Temp Pulse Resp BP Pulse Ox 98.8 F 98 H 18 130/72 97 03/13/21 18:45 03/13/21 18:45 03/13/21 18:45 03/13/21 18:45 03/13/21 18:45 General appearance: Present: no acute distress, obese - EENT Eyes: Present: PERRL ENT: hearing intact, clear oral mucosa - Neck Neck: Present: supple, normal ROM - Respiratory Respiratory effort: normal Respiratory: bilateral: CTA - Cardiovascular Heart Sounds: Present: S1 & S2. Absent: rub, click - Extremities Extremities: pulses symmetrical, No edema Peripheral Pulses: within normal limits - Abdominal General gastrointestinal: Present: soft, non-tender, non-distended, normal bowel sounds Female genitourinary: Present: normal - Integumentary Integumentary: Present: clear, warm, dry - Musculoskeletal Musculoskeletal: gait normal, strength equal bilaterally - Psychiatric Psychiatric: appropriate mood/affect, intact judgment & insight - Neurologic Neurologic: CNII-XII intact, moves all extremities Results - Labs CBC & Chem 7: 03/14/21 05:45 Assessment and Plan - Patient Problems (1) Tachycardia Current Visit: Yes Status: Acute Plan to address problem: Recommended: EKG, Pain control, CTA Chest to assess for PE, supportive care.
[2021-03-13] MEDS: IBUPROFEN 600 MG TAB PO SCH (20:51)
[2021-03-13] MEDS: oxyCODONE /ACETAMINOPHEN 5-325MG TAB PO PRN (23:09)
[2021-03-14] MEDS: IBUPROFEN 600 MG TAB PO SCH ×5 (00:10→23:39)
[2021-03-14 06:22] LABS: Hematocrit 30.5 % (30.3-42.9); Hemoglobin 10.4 gm/dl (10.1-14.3)
[2021-03-14] MEDS: oxyCODONE /ACETAMINOPHEN 5-325MG TAB PO PRN ×3 (08:10→21:31)
--- NOTE | 2021-03-14 08:48 | Post Anesthesia Evaluation ---
- Post Anesthesia Evaluation Patient Participated: Yes Airway Patent: Yes Stable Respiratory Function: Yes Nausea/Vomiting: No Temp > 96.8F: Yes Pain Manageable: Yes Adequeate Hydration: Yes Anesthesia Complications: No Block Receding Appropriately: Yes Patient on Ventilator: No
--- NOTE | 2021-03-14 10:08 | Progress Note ---
Assessment and Plan - Patient Problems (1) Tachycardia Current Visit: Yes Status: Acute Plan to address problem: s/p Hospitalist consult. CTA neg for PE. Tachycardia improving. Continue to monitor (2) Term delivered Current Visit: No Status: Acute Plan to address problem: --Meeting goals. Anticipate discharge in 24-48 hours. Subjective - Subjective Date of service: 03/14/21 Principal diagnosis: PPD1 Interval history: Reports feeling well. Tachycardia improved. Reports normal lochia. Pain controlled. Baby doing well in the room. Breast/bottle feeding. Patient reports: appetite normal, voiding normally, pain well controlled, flatus [place]: doing well Objective - Vital Signs Latest vital signs: Vital Signs Temp Pulse Resp BP BP Pulse Ox 03/14/21 08:10 97.8 F 83 18 101/70 99 03/14/21 00:23 98.0 F 97 H 18 126/73 96 03/13/21 23:09 18 03/13/21 21:02 98.0 F 108 H 18 103/62 97 03/13/21 18:45 98.8 F 98 H 18 130/72 97 03/13/21 18:14 87 94 03/13/21 18:10 103 H 94 03/13/21 18:08 94 H 94 03/13/21 18:05 98 H 96 03/13/21 18:01 93 H 94 03/13/21 18:00 92 H 129/67 95 03/13/21 17:45 98 H 117/62 95 03/13/21 17:44 105 H 93 03/13/21 17:40 98 H 95 03/13/21 17:35 99 H 95 03/13/21 17:30 92 H 131/74 95 03/13/21 17:27 94 H 94 03/13/21 17:25 112 H 95 03/13/21 17:22 106 H 94 03/13/21 17:20 106 H 95 03/13/21 17:15 113 H 108/60 97 03/13/21 17:10 114 H 93 03/13/21 17:06 118 H 94 03/13/21 17:05 116 H 95 03/13/21 17:00 111 H 125/75 95 03/13/21 16:55 116 H 121/74 96 03/13/21 16:50 115 H 83 L 03/13/21 16:48 117 H 94 03/13/21 16:45 118 H 95 03/13/21 16:40 129 H 96 03/13/21 16:35 121 H 97 03/13/21 16:30 125 H 96 03/13/21 16:25 120 H 97 03/13/21 16:21 135 H 93 03/13/21 16:20 128 H 95 03/13/21 16:15 134 H 95 03/13/21 15:30 160 H 131/68 03/13/21 15:20 125 H 98 03/13/21 15:15 123 H 99 03/13/21 15:10 120 H 99 03/13/21 15:05 116 H 99 03/13/21 15:01 116 H 112/79 03/13/21 15:00 113 H 100 03/13/21 14:55 116 H 99 03/13/21 14:50 118 H 100 03/13/21 14:45 121 H 98 03/13/21 14:40 120 H 100 03/13/21 14:35 112 H 100 03/13/21 14:30 113 H 116/73 100 03/13/21 14:25 108 H 100 03/13/21 14:20 112 H 99 03/13/21 14:15 114 H 99 03/13/21 14:10 111 H 100 03/13/21 14:05 112 H 99 03/13/21 14:00 102 H 117/74 99 03/13/21 13:55 94 H 98 03/13/21 13:50 97 H 97 03/13/21 13:45 98 H 98 03/13/21 13:40 99 H 99 03/13/21 13:35 101 H 97 03/13/21 13:31 90 107/60 03/13/21 13:30 91 H 97 03/13/21 13:25 106 H 97 03/13/21 13:20 104 H 98 03/13/21 13:15 94 H 97 03/13/21 13:10 100 H 97 03/13/21 13:05 108 H 97 03/13/21 13:01 106 H 105/55 03/13/21 13:00 105 H 97 03/13/21 12:55 103 H 96 03/13/21 12:50 100 H 97 03/13/21 12:45 104 H 97 07/06/21 12:40 103 H 97 03/13/21 12:35 99 H 96 03/13/21 12:30 104 H 97 03/13/21 12:25 120 H 96 03/13/21 12:20 121 H 97 03/13/21 12:15 118 H 97 03/13/21 12:10 121 H 96 03/13/21 12:04 127 H 96 03/13/21 11:59 120 H 99 03/13/21 11:54 127 H 100 03/13/21 11:49 120 H 100 03/13/21 11:44 116 H 99 03/13/21 11:39 120 H 100 03/13/21 11:34 120 H 100 03/13/21 11:33 115 H 106/61 03/13/21 11:29 120 H 100 03/13/21 11:24 122 H 100 03/13/21 11:19 120 H 100 03/13/21 11:14 129 H 100 03/13/21 11:09 115 H 98 03/13/21 11:04 111 H 99 03/13/21 11:02 113 H 106/57 03/13/21 10:59 113 H 95 03/13/21 10:54 114 H 97 03/13/21 10:49 106 H 98 03/13/21 10:44 107 H 97 03/13/21 10:39 108 H 97 03/13/21 10:34 105 H 98 03/13/21 10:32 106 H 109/59 03/13/21 10:29 108 H 97 03/13/21 10:24 108 H 100 03/13/21 10:19 124 H 100 03/13/21 10:14 115 H 98 03/13/21 10:09 123 H 96 Intake and Output 03/13/21 03/14/21 03/14/21 23:59 07:59 15:59 Intake Total 300 700 120 Output Total 500 300 Balance -200 400 120 Intake: Oral 400 120 Intake, Free Water 300 300 Output: Urine 500 300 Void 500 300 Other: Total, Intake Amount 200 120 Total, Output Amount 300 300 # Voids Void 1 Estimated Blood Loss 200 - Exam Cardiovascular: Present: Regular rate Lungs: Present: Clear to auscultation Abdomen: Present: normal appearance Uterus: Present: firm, fundal height below umbilicus Extremities: Present: normal
[2021-03-14] MEDS: PRENATAL VIT27-FE FUMARATE-FOLIC ACID VIT TAB PO SCH (10:10)
--- NOTE | 2021-03-14 17:27 | Event Note ---
Date: 03/14/21 I called patient's nurse Luana Edel in room 2137, and inquired about patient's heart rate, she reported that patient's heart rate is in 80s to 90s, no tachycardia,Vital signs are stable and patient is asymptomatic, and no new concerns or complaints.and that I need not round on her today. Advised her to call with any new questions or concerns. She verbalized understanding
--- NOTE | 2021-03-14 17:55 | Electrocardiograph Report ---
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
[2021-03-15] MEDS: IBUPROFEN 600 MG TAB PO SCH ×2 (05:27→11:28)
[2021-03-15 08:24] VITALS: BP 108/64
--- NOTE | 2021-03-15 09:10 | Discharge Summary ---
Providers - Providers Date of Admission: 03/13/21 02:16 Date of discharge: 03/15/21 Attending physician: PURNIMA REYES MD 03/13/21 16:51 Consult to Physician [CONS] Routine Comment: Consulting Provider: MARLEN WEI Physician Instructions: please evaluate Reason For Exam: tachycardia Primary care physician: PURNIMA REYES MD Hospitalization Reason for admission: active labor, IUP at term Delivery: Episiotomy: none Laceration: none Other procedures: other (EKG and CTA of chest for tachycardia) complications: none Discharge diagnosis: IUP at term delivered, [place] baby: female Hospital course: Pt was admitted to [facility] in active labor. She had a and developed tachycardia while in labor. Pt was seen by hospitalist and cleared to go home; CTA of chest and EKG were neg. See H&P, delivery summary, and pp notes. Condition at discharge: Stable Disposition: DC-01 TO HOME OR SELFCARE Plan - Discharge Medications Prescriptions: Ibuprofen [Motrin 600 MG tab] 600 mg PO Q6H #30 tablet - Provider Discharge Summary Activity: routine, no sex for 6 weeks, no heavy lifting 4 weeks, no strenuous exercise Diet: routine Instructions: routine Additional instructions: [] Smoking cessation referral if applicable(refer to patient education folder for contact #) [] Refer to [facility] Booklet Call your doctor immediately for: * Fever > 100.5 * Heavy vaginal bleeding ( >1 pad per hour) * Severe persistent headache * Shortness of breath * Reddened, hot, painful area to leg or breast * Drainage or odor from incision. * Keep incision clean and dry at all times and follow doctor's instructions regarding bathing/showering - Follow up plan Follow up: PURNIMA REYES MD [Primary Care Provider] - 6 Weeks
[2021-03-15] MEDS: PRENATAL VIT27-FE FUMARATE-FOLIC ACID VIT TAB PO SCH (09:37)
[2021-03-15] MEDS ORDERED: PE/MO/PET,WH 10 APPLIC/28 GM TUBE PR PRN (12:00)
== END 2021-03-15 14:25 | disposition home or self-care (01) | DRG 807 ==
LOC: TRG 01:39 → APU 01:57 → TRG 02:16 → LD 02:16 → OBSVTOIN 02:16 → OB 19:11
PROVIDERS: ADMIT Obstetrics & Gynecology; ATTEND Obstetrics & Gynecology
PROC: 10E0XZZ Delivery of Products of Conception, External Approach (ICD-10-PCS; principal; 2021-03-13)
PROC: 3E033VJ Introduction of Other Hormone into Peripheral Vein, Percutaneous Approach (ICD-10-PCS; 2021-03-13)
PROC: 3E0R3BZ Introduction of Anesthetic Agent into Spinal Canal, Percutaneous Approach (ICD-10-PCS; 2021-03-13)
PROC: 00HU33Z Insertion of Infusion Device into Spinal Canal, Percutaneous Approach (ICD-10-PCS; 2021-03-13)
PROC: 10907ZC Drainage of Amniotic Fluid, Therapeutic from Products of Conception, Via Natural or Artificial Opening (ICD-10-PCS; 2021-03-13)
PROC: 10H07YZ Insertion of Other Device into Products of Conception, Via Natural or Artificial Opening (ICD-10-PCS; 2021-03-13)
DX: O99.214 Obesity complicating childbirth (principal); Z37.0 Single live birth; O99.892 Other specified diseases and conditions complicating childbirth; Z20.822 Contact with and (suspected) exposure to COVID-19; R00.0 Tachycardia, unspecified; O34.211 Maternal care for low transverse scar from previous cesarean delivery; E66.9 Obesity, unspecified; Z79.899 Other long term (current) drug therapy; Z3A.40 40 weeks gestation of pregnancy
CPT/HCPCS: 36415; 59025; 71275; 85014; 85018; 85027; 86592; 86850; 86900; 86901; 93005; G0378; J2405; J7120; Q9967; U0003